=== PATIENT | female | born 1925 | race Caucasian/White ===

== ENCOUNTER 2016-10-28 17:19 | Emergency (ER) | payer OTHER ==
[2016-10-28 17:16] LABS: BASOPHILS 0.3 %; BASOPHILS ABSOLUTE 0.03 10/3/uL (0.0-0.16); EOSINOPHILS 2.9 %; EOSINOPHILS ABSOLUTE 0.29 10/3/uL (0.0-0.53); IMMATURE GRANULOCYTES 0.3 %; IMMATURE GRANULOCYTES ABSOLUTE 0.03 10/3/uL (0.0-0.11); LYMPHOCYTES 20.4 %; LYMPHOCYTES ABSOLUTE 2.04 10/3/uL (0.67-4.30); MEAN CORPUS HGB CONC 34.3 g/dL (32.0-36.0); MEAN CORPUSCULAR HEMOGLOB 30.6 pg (26.0-34.0); MEAN PLATELET VOLUME 12.2 fL (9.2-13.0); MONOCYTES 4.5 %; MONOCYTES ABSOLUTE 0.45 10/3/uL (0.21-1.20); NEUTROPHILS 71.6 %; NEUTROPHILS ABSOLUTE 7.16 10/3/uL (2.02-8.40); RBC DISTRIBUTION WIDTH 15.9 % (12.0-16.0)
[~2016-10-28 17:19] MED LIST: ACET500CAP PO; ATEN25 PO; B121000P IM; CARDCD180 PO; CLARIT10 PO; DILT-XR180 MG PO; HUMULIN R1 ML SC; HUMULIN SC; METAMUCIL CAN7 OZ PO; NORV25 PO; PREPARATIO2 TOP; PRILO PO; PRIN20 PO; [UNRECOGNIZED DRUG - CODE] OPH
[2016-10-28 17:20] LABS: ER CBC TAT 0 Hrs 11 Mins; HEMATOCRIT 39.9 % (36.0-48.0); HEMOGLOBIN 13.7 g/dL (12.0-16.0); MANUAL DIFF NO %; MEAN CORPUSCULAR VOLUME 89.1 fL (80-100); PLATELET COUNT 204 10/3/uL (150-400); RED CELL COUNT 4.48 10/6/uL (4.0-5.6)
[2016-10-28 17:34] LABS: BUN (BLOOD UREA NITROGEN) 18 MG/DL (6-23); CHEST PAIN PROFILE TAT 0 Hrs 25 Mins; CHLORIDE, SERUM 102 MMOL/L (96-112); CO2 (CARBON DIOXIDE) 30 MMOL/L (24-34); CREATININE 0.85 MG/DL (0.55-1.02); GFR AFRICAN AMERICAN 70 ML/MIN (>=60); GFR NON AFRICAN AMERICAN 61 ML/MIN (>=60); POTASSIUM, SERUM 4.3 MMOL/L (3.5-5.3); SODIUM, SERUM 139 MMOL/L (135-148); TROPONIN I <0.02 NG/ML (<0.05)
[2016-10-28 17:36] LABS: GLUCOSE, SERUM 249 MG/DL (60-99)
[2016-10-28 17:48] LABS: INTERNATIONAL NORMAL RATI 0.9 UNITS (-); PARTIAL THROMBO TIME 29.5 SEC (22.5-37.2); PROTIME (NOT ORD) 12.5 SEC (12.0-14.5)
[2016-10-28 18:56] LABS: PLATELET ESTIMATE ADQ (ADEQUATE)
[2016-10-28 18:59] LABS: RBC MORPHOLOGY NORM (NORMAL)
== END 2016-10-28 18:48 | disposition home or self-care (01) ==
LOC: ER 17:19
PROVIDERS: Emergency Medicine
DX: I10 Essential (primary) hypertension (principal); K21.9 Gastro-esophageal reflux disease without esophagitis; E11.9 Type 2 diabetes mellitus without complications; D64.9 Anemia, unspecified; Z88.5 Allergy status to narcotic agent; Z88.8 Allergy status to other drugs, medicaments and biological substances; Z79.899 Other long term (current) drug therapy; Z79.4 Long term (current) use of insulin
CPT/HCPCS: 80048; 82962; 83735; 84484; 85025; 85610; 85730; 93005; 96374; 96376; 99284; J0360